=== PATIENT | male | born 1930 | race Two or more races ===

== ENCOUNTER 2016-10-27 06:15 | Emergency (ER) | payer MEDICARE ==
[~2016-10-27] VITALS: Ht 177.8 cm; Wt 75.0 kg
[~2016-10-27 06:15] MED LIST: EPINEPHRINE 0.1MG/ML (1:10,000) 10ML SYR ONE; SODIUM BICARBONATE 7.5% 0.9 MEQ/ML 50ML SYR IV ONE
[2016-10-27 06:18] VITALS: BP 0/0
== END 2016-10-27 09:44 | disposition expired ==
LOC: ER 06:15
DX: I46.9 Cardiac arrest, cause unspecified (principal); I10 Essential (primary) hypertension; Z95.0 Presence of cardiac pacemaker; Z88.8 Allergy status to other drugs, medicaments and biological substances
CPT/HCPCS: 82962; 99285; J0171; J3490